=== PATIENT | female | born 1955 | race Caucasian/White ===

== ENCOUNTER 2023-07-14 13:58 | Outpatient (AMB) | payer MEDICARE, OTHER, SELFPAY ==
--- NOTE | 2023-07-14 14:39 | AM.OFFWIN_ITS ---
Intake Vital Signs 07/14/23 14:42 Height 5 ft 4 in BMI Reason not done Patient refused/unable BP 140/80 H Blood Pressure Location Rt brachial Position Sitting Pulse 68 Pulse Source Pulse Oximeter Temp 98.6 F Temp Source Temporal Artery Scan Pulse Oximetry (%) 96 Intake Visit Reasons: [employer] - fall, left ankle pain Intake Note: pt is here for c/o left ankle pain due to fall at home Patient Tobacco Use Status: Never used Tobacco Allergies penicillin V Allergy (Mild, Verified 07/14/23 15:29) Unknown Sulfa (Sulfonamide Antibiotics) Allergy (Mild, Verified 07/14/23 15:29) Unknown iodine Allergy (Unknown, Verified 07/14/23 15:29) Swelling Erythromycin Allergy (Mild, Uncoded 07/14/23 15:29) Unknown Medication List - Last Reconciled 07/14/23 by Ranjit Wilson MD irbesartan 150 mg PO QAM Do you need a note to return to daycare/school/sports/work: Yes HPI [employer]ER - fall, left ankle pain HPI Details 68-year-old female presents to the [facility] for a sick visit. Patient is visiting us from [place]. She slipped and fell inside her house today. It was coming down the steps backwards when she landed on her side. In this process, she has injured her left ankle. Unable to bear weight and is using a cane to ambulate. [facility] Social History Patient Tobacco Use Status: Never used Tobacco Physical Exam Vital Signs: Last Vital Signs Temp 98.6 F 07/14/23 14:42 Pulse 68 07/14/23 14:42 BP 140/80 H 07/14/23 14:42 Pulse Ox 96 07/14/23 14:42 Extrem Other: Ankle: Left: No visible bruising. Tenderness over the lateral margin. Pain on flexion and extension of the foot. Eversion of the foot elicits sharp discomfort. Assessment & Plan Assessment & Plan (1) Left ankle sprain: Code(s): S93.402A - Sprain of unspecified ligament of left ankle, initial encounter Plan X-ray images were personally reviewed by me. No fractures seen. Aircast provided. Orders: Orders XR ankle LT min 3V Today S93.402A - Sprain of unspecified ligament of left ankle, initial encounter Coding Level of Care Code Est Pt Level 4 (79388) Diagnoses Left ankle sprain S93.402R
[2023-07-14 14:42] VITALS: BP 140/80; PULSE 68; TEMP 37; O2SAT 96
== END 2023-07-14 16:03 | disposition home or self-care (01) ==
PROVIDERS: Visit Provider Internal Medicine
DX: S93.402A Sprain of unspecified ligament of left ankle, initial encounter (principal)
CPT/HCPCS: 99214

== ENCOUNTER 2023-07-14 15:28 | Outpatient (REF) | payer MEDICARE, OTHER, SELFPAY ==
--- NOTE | ~2023-07-14 | XR_ITS ---
EXAMINATION: XR ANKLE, LEFT CLINICAL INFORMATION: Sprain. COMPARISON: None available. TECHNIQUE: AP, lateral, and mortise views of the left ankle. FINDINGS: No fracture. Alignment is anatomic. No erosions. Joint spaces are maintained. Soft tissues are normal. XR/XR ankle LT min 3V IMPRESSION: Normal left ankle.
== END 2023-07-14 15:29 | disposition home or self-care (01) ==
LOC: HO.HMGCX 15:28
PROVIDERS: Visit Provider Internal Medicine
DX: S93.402A Sprain of unspecified ligament of left ankle, initial encounter (principal); X58.XXXA Exposure to other specified factors, initial encounter; Y93.9 Activity, unspecified; Y92.9 Unspecified place or not applicable; Y99.9 Unspecified external cause status
CPT/HCPCS: 73610